=== PATIENT | female | born 1980 | race Caucasian/White ===

== ENCOUNTER 2016-12-08 12:25 | Emergency (ER) | payer SELFPAY | END 2016-12-08 12:32 | disposition left against medical advice (07) | LOC: ER 12:25 | DX: R09.89 Other specified symptoms and signs involving the circulatory and respiratory systems (principal) ==

== ENCOUNTER 2016-12-08 14:53 | Emergency (ER) | payer MEDICAID ==
--- NOTE | 2016-12-08 15:54 | ED Physician Chart ---
Chief Complaint/HPI - Patient Information Date Seen:: 12/08/16 Time Seen:: 15:25 Chief Complaint:: sinus congestion for 4 weeks History of Present Illness:: History of present illness: Previously healthy patient developed nasal congestion four weeks ago which has worsened with a short fullness, sinus pressure, copious green sputum and nasal discharge, and scratchy cough. And has continued to use [id number] decongestants. Nonsmoker. She has a history of repetitive sinus infections approximately 1 a year. Patient denies earache, sore throat, chest pain, productive cough, fevers chills, night sweats , and has continued to do her activities of daily living. Allergies:: Allergies Allergy/AdvReac Type Severity Reaction Status Date / Time No Known Allergies Allergy Verified 12/08/16 15:19 Vitals:: Vital Signs - 8 hr 12/08/16 12/08/16 15:15 15:44 Temp 97.9 F 97.9 F HR 81 81 RR 16 16 BP 140/83 140/83 O2 Sat % 97 97 Historian:: Patient Review:: Nurse's Note Reviewed Review of Systems - Review of Systems Other: All other systems were reviewed and are negative except for those findings already mentioned in the history of present illness. Past Medical History - Past Medical History Obtainable: Yes Past Medical History: No significant medical hx Family History: Diabetes Melitus Surgical History: Appendectomy Psychiatricy History: None Medication: Reviewed Family Medical History - Family Member Mother Living Status: Still Living Hx Family Diabetes: Yes Physical Exam - Physical Examination General/Constitutional: Awake, Well-developed, well-nourished, Alert, No distress, GCS 15, Non-toxic appearing, Ambulatory Head: Atraumatic Eyes: Lids, conjuctiva normal, PERRL, EOMI Skin: Nl inspection, No rash, No skin lesions, Well hydrated, No lymphadenopathy ENMT: External ears, nose nl, TM canals nl, Oropharynx nl, Tonsils nl (the nose is remarkable for small amounts of green mucus in the bilateral nares. There is sinus tenderness bilaterally over the maxillae but no facial asymmetry, discoloration, or swelling.) Neck: Nontender, No mass, No stridor Respiratory: Nl effort/Exclusion, No Wheeze/Rhonchi/Rales Cardio Vascular: RRR Neuro/Psych: Alert/oriented, Judgement/insight normal, Normal gait ED Septic Shock - . Is Septic Shock (SBP<90, OR Lactate>4 mmol\L) present?: No - <6hrs of presentation: Vital Signs: Vital Signs - 8 hr 12/08/16 12/08/16 15:15 15:44 Temp 97.9 F 97.9 F HR 81 81 RR 16 16 BP 140/83 140/83 O2 Sat % 97 97 Reassessment (Disposition) - Reassessment Reassessment Condition:: Unchanged - Diagnosis Diagnosis:: Diagnosis: Acute sinusitis secondary to URI - Aftercare/Follow up Instructions Aftercare/Follow-Up Instructions:: Counseled pt regarding lab results/diagnosis & need follow up, Refer to Discharge Instructions Medication Prescribed:: Zithromax 250 mg tab 2 tab day 1 and 1 tab for 4 days - Patient Disposition Discharge/Transfer:: Home ED Discharge Plan - Patient Disposition Admit/Discharge/Transfer: PT DISCHARGED HOME Condition at Disposition: Stable Prescriptions: Azithromycin [Zithromax] 250 mg PO DAILY #0 tab Instructions: Sinusitis, [id number] Accepting Physician: , Primary [Other]
== END 2016-12-08 15:45 | disposition home or self-care (01) ==
LOC: ER 14:53
DX: J06.9 Acute upper respiratory infection, unspecified (principal); J01.90 Acute sinusitis, unspecified; Z90.49 Acquired absence of other specified parts of digestive tract
CPT/HCPCS: Z7502

== ENCOUNTER 2016-12-18 08:09 | Emergency (ER) | payer MEDICAID ==
--- NOTE | 2016-12-18 08:46 | ED Physician Chart ---
Chief Complaint/HPI - Patient Information Date Seen:: 12/18/16 Time Seen:: 08:30 Chief Complaint:: facial pressure History of Present Illness:: Patient has had facial pressure for the last 1-1/2 months. 11 days ago she was seen here and prescribed a Z-Tony. She's had no fever. She has had a cough productive of green sputum. Allergies:: Allergies Allergy/AdvReac Type Severity Reaction Status Date / Time No Known Allergies Allergy Verified 12/08/16 15:19 Historian:: Patient Review:: Nurse's Note Reviewed Review of Systems - Review of Systems General/Constitutional: No fever, No chills Skin: No skin lesions Head: No headache Eyes: No loss of vision ENT: No earache, No nasal drainage Neck: No neck pain, No thyromegaly Cardio Vascular: No chest pain, No palpitations Pulmonary: No SOB, Cough GI: No nausea, No vomiting G/U: No dysuria, No frequency Musculoskeletal: No bone or joint pain Endocrine: No polyuria, No polydipsia Psychiatric: No prior psych history, No depression, No anxiety Hematopoietic: No bruising Allergic/Immuno: No urticaria, No angioedema Neurological: No syncope, No focal symptoms Past Medical History - Past Medical History Past Medical History: Other (environmental allergies) Family History: Heart disease, Diabetes Melitus, HTN Social History: Non Smoker, Other (drinks alcohol occasionally) Surgical History: Appendectomy Psychiatricy History: None Medication: Reviewed Family Medical History - Family Member Mother Living Status: Still Living Hx Family Diabetes: Yes Physical Exam - Physical Examination General/Constitutional: Well-developed, well-nourished, Alert, No distress Other Head comments:: Tenderness to palpation over maxillary sinuses Eyes: Lids, conjuctiva normal, PERRL Skin: Nl inspection, No rash, No skin lesions, No ecchymosis ENMT: External ears, nose nl, TM canals nl, Nasal exam nl, Lips, teeth, gums nl , Oropharynx nl, Tonsils nl Neck: No nuchal rigidity Respiratory: Nl effort/Exclusion, Clear to Auscultation, No Wheeze/Rhonchi/Rales Cardio Vascular: RRR, No murmur, gallop, rubs, NL S1 S2 GI: No tenderness/rebounding/guarding, No organomegaly, No hernia, Normal BS's, Nondistended, No mass/bruits, No McBurney tenderness : No CVA tenderness Extremities: Normal digits & nails Neuro/Psych: Alert/oriented, Judgement/insight normal Misc: Normal back Assessment - Assessment General Assessment: Discussed with patient the cause of her sinus congestion. I suggested that most likely her condition was due to a viral infection and environmental allergies not a bacterial infection. Told her that antibiotics would probably not be effective but if she really does have bacterial sinusitis a longer course of antibiotics is indicated so I prescribed amoxicillin 500 mg 3 times a day for 2 weeks. ED Septic Shock - . Is Septic Shock (SBP<90, OR Lactate>4 mmol\L) present?: No Reassessment (Disposition) - Reassessment Reassessment Condition:: Unchanged - Diagnosis Diagnosis:: Acute viral syndrome; environmental allergies; sinusitis, viral more likely than bacterial - Aftercare/Follow up Instructions Aftercare/Follow-Up Instructions:: Refer to Discharge Instructions - Patient Disposition Discharge/Transfer:: Home Condition at Disposition:: Stable, Unchanged ED Discharge Plan - Patient Disposition Instructions: Sinusitis, [id number]
== END 2016-12-18 08:55 | disposition home or self-care (01) ==
LOC: ER 08:09
DX: B34.9 Viral infection, unspecified (principal); J32.9 Chronic sinusitis, unspecified; J30.2 Other seasonal allergic rhinitis; Z90.49 Acquired absence of other specified parts of digestive tract
CPT/HCPCS: Z7502

== ENCOUNTER 2017-04-16 08:21 | Emergency (ER) | payer MEDICAID ==
--- NOTE | 2017-04-16 08:46 | ED Physician Chart ---
ED Chief Complaint/HPI - Patient Information Date Seen:: 04/16/17 Time Seen:: 08:30 Chief Complaint:: facial burning History of Present Illness:: Patient finished a 5 day course of amoxicillin 500 mg 3 times a day 3 days ago for presumed sinusitis. She had green nasal discharge for which the amoxicillin was prescribed. Since finishing the amoxicillin patient has had burning sensation over the maxillary sinuses. Allergies:: Allergies Allergy/AdvReac Type Severity Reaction Status Date / Time No Known Allergies Allergy Verified 04/16/17 08:34 Vitals:: Vital Signs - 8 hr 04/16/17 08:21 Temp 97.0 F HR 89 RR 16 BP 132/89 O2 Sat % 100 Historian:: Patient Review:: Nurse's Note Reviewed ED Review of Systems - Review of Systems General/Constitutional: No fever, No chills Skin: No skin lesions Head: No headache Eyes: No loss of vision ENT: No earache Neck: No neck pain Cardio Vascular: No chest pain, No palpitations Pulmonary: No SOB GI: No nausea, Vomiting G/U: No dysuria, No hematuria Musculoskeletal: No bone or joint pain, No back pain Endocrine: No polyuria Psychiatric: No prior psych history Hematopoietic: Bruising Allergic/Immuno: No urticaria Neurological: No syncope ED Past Medical History - Past Medical History Past Medical History: Other (seasonal allergies) Family History: Heart disease, Diabetes Melitus Social History: Non Smoker, No Alcohol Surgical History: Appendectomy Psychiatricy History: None Medication: Reviewed Family Medical History - Family Member Mother Age: 67 Ethnicity: Living Status: Still Living Hx Family Hypertension: Yes Hx Family Diabetes: Yes ED Physical Exam - Physical Examination General/Constitutional: Well-developed, well-nourished, Alert, No distress Head: Atraumatic Eyes: Lids, conjuctiva normal, PERRL Skin: Nl inspection, No rash, No skin lesions, No ecchymosis ENMT: External ears, nose nl, TM canals nl, Nasal exam nl, Lips, teeth, gums nl , Oropharynx nl, Tonsils nl Neck: No nuchal rigidity Respiratory: Nl effort/Exclusion, Clear to Auscultation Cardio Vascular: RRR, No murmur, gallop, rubs GI: No tenderness/rebounding/guarding : No CVA tenderness Extremities: No tenderness or effusion, Full ROM, Normal digits & nails Neuro/Psych: No focal deficits Misc: No paraspinal tenderness ED Assessment - Assessment General Assessment: Explained to patient that I thought she had a viral infection for which antibiotics will not be effective. However she came here for prescription for antibiotics so I gave her prescription for a Z-Tony ED Septic Shock - . Is Septic Shock (SBP<90, OR Lactate>4 mmol\L) present?: No - <6hrs of presentation: Vital Signs: Vital Signs - 8 hr 04/16/ 08:21 Temp 97.0 F HR 89 RR 16 BP 132/89 O2 Sat % 100 ED Reassessment (Disposition) - Reassessment Reassessment Condition:: Unchanged - Diagnosis Diagnosis:: Viral syndrome - Aftercare/Follow up Instructions Aftercare/Follow-Up Instructions:: Refer to Discharge Instructions Medication Prescribed:: Z-Tony - Patient Disposition Discharge/Transfer:: Home Condition at Disposition:: Stable, Unchanged ED Discharge Plan - Patient Disposition Instructions: Sinusitis, [id number] Additional Instructions: TOLERATED.
== END 2017-04-16 08:48 | disposition home or self-care (01) ==
LOC: ER 08:21
DX: B34.9 Viral infection, unspecified (principal)
CPT/HCPCS: Z7502

== ENCOUNTER 2018-04-09 14:59 | Emergency (ER) | payer MEDICAID ==
--- NOTE | 2018-04-09 15:30 | ED Physician Chart ---
ED Chief Complaint/HPI - Patient Information Date Seen:: 04/09/18 Time Seen:: 15:10 Chief Complaint:: sinus congestion History of Present Illness:: sinus congestion Allergies:: Allergies Allergy/AdvReac Type Severity Reaction Status Date / Time No Known Allergies Allergy Verified 04/16/17 08:34 Vitals:: Vital Signs - 8 hr 04/09/18 15:09 Temp 98.3 F HR 117 RR 16 BP 123/74 O2 Sat % 98 Historian:: Patient Review:: Nurse's Note Reviewed ED Review of Systems - Review of Systems General/Constitutional: No fever, No chills, No weight loss, No weakness, No diaphoresis, No edema, No loss of appetite Skin: No skin lesions, No rash, No bruising Head: Headache Eyes: No loss of vision, No pain, No diplopia ENT: Other (post nasal drainage) Neck: No neck pain, No swelling, No thyromegaly, No stiffness, No mass noted Cardio Vascular: No chest pain, No palpitations, No PND, No orthopnea, No edema Pulmonary: No SOB, No cough, No sputum, No wheezing GI: No nausea, No vomiting, No diarrhea, No pain, No melena, No hematochezia, No constipation, No hematemesis G/U: No dysuria, No frequency, No hematuria Musculoskeletal: No bone or joint pain, No back pain, No muscle pain Endocrine: No polyuria, No polydipsia Psychiatric: No prior psych history, No depression, No anxiety, No suicidal ideation Hematopoietic: No bruising, No lymphadenopathy Allergic/Immuno: No urticaria, No angioedema Neurological: No syncope, No focal symptoms, No weakness, No paresthesia, No headache, No seizure, No dizziness, No confusion, No vertigo ED Past Medical History - Past Medical History Obtainable: Yes Past Medical History: No significant medical hx Family Medical History - Family Member Mother Ethnicity: Living Status: Still Living Hx Family Hypertension: Yes Hx Family Diabetes: Yes ED Physical Exam - Physical Examination General/Constitutional: Awake, Well-developed, well-nourished, Alert, No distress, GCS 15, Non-toxic appearing, Ambulatory Head: Atraumatic Eyes: Lids, conjuctiva normal, PERRL, EOMI Skin: Nl inspection, No rash, No skin lesions, No ecchymosis, Well hydrated, No lymphadenopathy ENMT: External ears, nose nl, Nasal exam nl, Lips, teeth, gums nl Other ENMT comments:: Sinus pressure to palpation over the maxillary and ethmoid sinuses. Neck: Nontender, Full ROM w/o pain, No JVD, No nuchal rigidity, No bruit, No mass, No stridor Neuro/Psych: Alert/oriented, Normal sensory exam, Normal motor strength, Judgement/insight normal, Mood normal, Normal gait, No focal deficits ED Septic Shock - . Is Septic Shock (SBP<90, OR Lactate>4 mmol\L) present?: No - <6hrs of presentation: Vital Signs: Vital Signs - 8 hr / 15:09 Temp 98.3 F HR 117 RR 16 BP 123/74 O2 Sat % 98 ED Reassessment (Disposition) - Reassessment Reassessment Condition:: Unchanged - Diagnosis Diagnosis:: Sinusitis - Aftercare/Follow up Instructions Aftercare/Follow-Up Instructions:: Refer to Discharge Instructions Medication Prescribed:: Augmentin 875 po bid # 20; Medrol dose pack 4 mg take as directed - Patient Disposition Discharge/Transfer:: Home Condition at Disposition:: Stable, Unchanged
== END 2018-04-09 15:40 | disposition home or self-care (01) ==
LOC: ER 14:59
DX: J32.9 Chronic sinusitis, unspecified (principal); R51 Headache
CPT/HCPCS: Z7502

== ENCOUNTER 2018-07-21 07:54 | Emergency (ER) | payer MEDICAID ==
--- NOTE | 2018-07-21 10:45 | ED Physician Chart ---
ED Chief Complaint/HPI - Patient Information Date Seen:: 07/21/18 Time Seen:: 08:15 Chief Complaint:: Fever History of Present Illness:: onset x 3 days of fever, cough, S/T, and congestion; pt denies trauma, LOC, ALOC , AMS, H/As, E/As, neck pain, C/P, SOB, Abd. Pain, A/N/V/D/C, chills, or urinary s/s; LNMP: 07/15/18; pt denies ; pt is eating and urinating well; pt last urinated one hour [employer] Allergies:: Allergies Allergy/AdvReac Type Severity Reaction Status Date / Time No Known Allergies Allergy Verified 07/21/18 08:15 Vitals:: Vital Signs - 8 hr 07/21/18 08:15 Temp 97.2 F HR 87 RR 18 BP 140/91 O2 Sat % 98 Historian:: Patient, Family Member Review:: Nurse's Note Reviewed, Old Chart Reviewed ED Review of Systems - Review of Systems General/Constitutional: Fever, No chills, No weight loss, No weakness, No diaphoresis, No edema, No loss of appetite Skin: No skin lesions, No rash, No bruising Head: No headache, No light-headedness Eyes: No loss of vision, No pain, No diplopia ENT: No earache, Nasal drainage, Sore throat, No tinnitus Neck: No neck pain, No swelling, No thyromegaly, No stiffness, No mass noted Cardio Vascular: No chest pain, No palpitations, No PND, No orthopnea, No edema Pulmonary: No SOB, Cough, No sputum, No wheezing GI: No nausea, No vomiting, No diarrhea, No pain, No melena, No hematochezia, No constipation, No hematemesis G/U: No dysuria, No frequency, No hematuria, No nacturia Functional Analyst: No vaginal discharge, No abnormal vaginal bleed, No contraction Musculoskeletal: No bone or joint pain, No back pain, No muscle pain Endocrine: No polyuria, No polydipsia Psychiatric: No prior psych history, No depression, No anxiety, No suicidal ideation, No homicidal ideation, No auditory hallucination, No visual hallucination Hematopoietic: No bruising, No lymphadenopathy Allergic/Immuno: No urticaria, No angioedema Neurological: No syncope, No focal symptoms, No weakness, No paresthesia, No headache, No seizure, No dizziness, No confusion, No vertigo ED Past Medical History - Past Medical History Obtainable: Yes Past Medical History: HTN Family History: HTN Social History: Non Smoker, No Alcohol, No Drug Use, Surgical History: None Psychiatricy History: None Medication: Reviewed Family Medical History - Family Member Mother History Unknown: Yes Ethnicity: Living Status: Still Living Hx Family Hypertension: Yes Hx Family Diabetes: Yes ED Physical Exam - Physical Examination General/Constitutional: Awake, Well-developed, well-nourished, Alert, No distress, GCS 15, Non-toxic appearing, Ambulatory Head: Atraumatic Eyes: Lids, conjuctiva normal, PERRL, EOMI Skin: Nl inspection, No rash, No skin lesions, No ecchymosis, Well hydrated, No lymphadenopathy ENMT: External ears, nose nl, TM canals nl, Nasal exam nl, Lips, teeth, gums nl , Tonsils nl Other ENMT comments:: Pharynx: Injected; no exudates; no abscesses; no FBs; no airway obstruction; + Nasal Congestion Neck: Nontender, Full ROM w/o pain, No JVD, No nuchal rigidity, No bruit, No mass, No stridor Other Neck comments:: supple; no meningeal signs; no cervical tenderness; no bruits Respiratory: Nl effort/Exclusion, Clear to Auscultation, No Wheeze/Rhonchi/Rales Cardio Vascular: RRR, No murmur, gallop, rubs, NL S1 S2, Carotid/Femoral/Distal pulses equal bilaterally GI: No tenderness/rebounding/guarding, No organomegaly, No hernia, Normal BS's, Nondistended, No mass/bruits, No McBurney tenderness, Rectum exam nl Other GI comments:: no pulsatile masses : No CVA tenderness Extremities: No tenderness or effusion, Full ROM, normal strength in all extremities, No edema, Normal digits & nails Neuro/Psych: Alert/oriented, DTR's symmetric, Normal sensory exam, Normal motor strength, Judgement/insight normal, Mood normal, Normal gait, No focal deficits Other Neuro/Psych comments:: no focal signs Misc: Normal back, No paraspinal tenderness ED Septic Shock - . Is Septic Shock (SBP<90, OR Lactate>4 mmol\L) present?: No - <6hrs of presentation: Vital Signs: Vital Signs - 8 hr 07/21/18 08:15 Temp 97.2 F HR 87 RR 18 BP 140/91 O2 Sat % 98 ED Reassessment (Disposition) - Reassessment Reassessment:: pt tolerated po fluids well in ER; pt is asymptomatic upon discharge Reassessment Condition:: Improved - Diagnosis Diagnosis:: Dx: Sore Throat; Pharyngitis; Congestion; Sinusitis; Cough; Bronchitis; Fever; URI; Hypertension - Aftercare/Follow up Instructions Aftercare/Follow-Up Instructions:: Counseled pt regarding lab results/diagnosis & need follow up, Refer to Discharge Instructions, Counseled pt & family regarding lab results/diagnosis & need follow up Medication Prescribed:: Rx: Amoxicillin 500mg po tid x 10 days; Tylenol 500mg po qid prn fever/pain; Salt Water Gargles; Cool Mist Vaporizer; Fluids - Patient Disposition Discharge/Transfer:: Home Condition at Disposition:: Stable, Improved (Have Blood Pressure Re-Checked in one Day; RTER prn if existing s/s reoccur and/or get worse and/or any other new s/s occur; ACIs given for all above Dx; Refer to ENT Specialist/Sports Fitness And Wellness Director MILE; F/U with PMD in one day or prn; RTER prn if concerned)
== END 2018-07-21 09:00 | disposition home or self-care (01) ==
LOC: ER 07:54
DX: J02.9 Acute pharyngitis, unspecified (principal); J40 Bronchitis, not specified as acute or chronic; J32.9 Chronic sinusitis, unspecified; J06.9 Acute upper respiratory infection, unspecified; I10 Essential (primary) hypertension
CPT/HCPCS: Z7502